=== PATIENT | male | born 1950 | race African-American/Black ===

== ENCOUNTER 2016-09-15 23:00 | Inpatient (IN) | payer MEDICARE, OTHER ==
--- NOTE | ~2016-09-15 | HP ---
History And Physical [address] [place]. [address] NAME: ALIYA SUH : 52 STATUS : ADM IN [facility]#: [id number] AGE: 66 ADM/REG DATE : 09/16/16 MR#: [id number] REPORT SERV DATE: 09/16/16 DICTATED BY: BRYCE STERN DATE: 09/16/16 REPORT STATUS : Draft TRANSCRIBED BY: MODL DATE: 09/16/16 DATE OF ADMISSION: 09/16/2016 REASON FOR ADMISSION: Acute seizure, currently on mechanical ventilation. CHIEF COMPLAINT: Unable to obtain due to the patient's current medical status. HISTORY OF PRESENT ILLNESS: Mr. Suh is a 66-year-old gentleman, who was seen in the emergency room today for seizure. He was apparently in the waiting room for which he came up and asked when he was going to be seen and then shortly thereafter, had a seizure. He was brought to the emergency room and emergently intubated. He was given Keppra along with Ativan and is now currently on a propofol drip, currently on mechanical ventilation. No history was obtained prior. The emergency room has been attempting to contact family, but no family has been found as of yet. The patient is currently alone. PAST MEDICAL HISTORY: Unclear at this time, the patient currently smokes tobacco. MEDICATIONS: Unknown at this time. ALLERGIES: UNKNOWN AT THIS TIME. FAMILY HISTORY: Currently unknown at this time. SOCIAL HISTORY: As noted above. The patient does have a tobacco use history. REVIEW OF SYSTEMS: Unable to obtain. PHYSICAL EXAMINATION: VITAL SIGNS: Currently afebrile, heart rate around 80-90, blood pressure currently around 150 systolic, respiratory rate less than 20 on mechanical ventilation, and oxygen saturation 100% on mechanical ventilation. GENERAL: The patient is currently intubated and sedated. Pupils are equal and reactive. PULMONARY: Lungs are clear to auscultation bilaterally. No wheezing. CARDIAC: Regular rate. No murmurs. EXTREMITIES: No lower extremity edema, peripheral pulses noted in all extremities. Extremity is warm to touch. ABDOMEN: Abdomen is soft and nondistended. Positive bowel sounds. NEUROLOGIC: Currently, the patient is sedated. Prior to being intubated, he was moving all extremities. He was very strong and was having a seizure. LABORATORY EXAMINATION: No leukocytosis, hemoglobin 11.8, good kidney function, lactate 7, CPK 1200. Negative urine drug screen. Urinalysis is negative. Arterial blood gas shows a metabolic acidosis. IMAGING: Chest x-ray has been reviewed. ET tube is in good position. OG-tube is currently History And Physical [address] [address] NAME: ALIYA SUH : 52 STATUS : ADM IN [facility]#: [id number] AGE: 66 ADM/REG DATE : 09/16/16 MR#: [id number] REPORT SERV DATE: 09/16/16 DICTATED BY: BRYCE STERN DATE: 09/16/16 REPORT STATUS : Draft TRANSCRIBED BY: MODL DATE: 09/16/16 at the junction of the esophagus and stomach. ASSESSMENT AND PLAN: Mr. Suh is a 66-year-old gentleman with a past medical history that is known, who was noted to have an acute seizure, respiratory failure. Currently, the patient will continue mechanical ventilation, will have Neurology see the patient in the morning, will attempt to have more contact with the family. I would like to get his home med list. The patient is currently on propofol along with Keppra. At this moment in time, the patient is n.p.o. We will advance OG-tube and recheck a KUB. Prophylaxis: The patient will get gastrointestinal prophylaxis and also deep vein thrombosis prophylaxis as his head CT scan is negative. Code status: The patient is currently full code until we get further directives from the family. Metabolic acidosis: We will check another lactate and ABG. HFQ/MODL Bryce Stern MD / [id number] CC: Bryce Stern MD
--- NOTE | ~2016-09-15 | EEG ---
Electroencephalogram [address] [place]. [address] NAME: ALIYA HUERTA : 52 STATUS : ADM IN PAT#: [id number] AGE: 66 ADM/REG DATE : 09/16/16 MR#: [id number] REPORT SERV DATE: 09/16/16 DICTATED BY: DATE: REPORT STATUS : Draft TRANSCRIBED BY: MODL DATE: 09/16/16 CLINICAL INDICATION: Seizures, status epilepticus. DISCUSSION: This EEG was performed using 10/20 electrode placement system. During the EEG study, symmetric background activity was noted with predominant occipital rhythm of roughly 8 hertz. Muscle artifact was seen predominantly in the temporal area bilaterally. Otherwise, photic stimulation was performed with trace driving responses seen. Hyperventilation was not performed secondary to patient's intubation status. During the EEG study, episodic bilateral parietal as well as a central rhythmic activity were noted. No electrographic seizure was otherwise noted. No focal abnormality, seizure activity with seizure discharge were otherwise seen. Rhythmic activity mostly in the CZ as well as the P3 and P4 electrode was noted episodically during the EEG studies. The patient was noted to achieve drowsy state during the EEG studies. Prior to the EEG study, the patient's propofol was subsequently turned off. INTERPRETATION: This EEG study obtained during awake and drowsy state with the patient's propofol turned off can be considered abnormal secondary to presence of nonspecific rhythmic activity of unknown significance mostly in the central as well as the bilateral parietal area. No electrographic seizure, no clinical seizure, and no seizure activity was otherwise noted. No focal abnormality was otherwise observed during the EEG study. Clinical correlation is recommended. [facility]/SANJANA Kermit Flores MD / [id number] CC: Salvatore Escalera MD
--- NOTE | ~2016-09-15 | CN ---
Consultation Report [facility] [address] [place]. [address] NAME: ALIYA HUERTA : 52 STATUS : ADM IN PAT#: [id number] AGE: 66 ADM/REG DATE : 09/16/16 MR#: [id number] REPORT SERV DATE: 09/16/16 DICTATED BY: DATE: REPORT STATUS : Draft TRANSCRIBED BY: MODL DATE: 09/16/16 NEUROLOGY CONSULTATION DATE OF CONSULTATION: 09/16/2016 REASON FOR CONSULT: Seizure. HISTORY OF PRESENT ILLNESS: The patient presented to the emergency room for unknown reason. Prior to the patient's evaluation, the patient was noted to have witnessed tonic-clonic seizure and was brought back to the emergency room, had to be emergently intubated. The patient overnight was on Keppra 1000 mg IV b.i.d. and was noted to be on propofol drip as well. When the patient's propofol drip was turned off, the patient was noted to have elevated blood pressure as well as agitation and combative. Overnight attempts were made to contact the patient's family members also along with family, no family member was noted to be visiting the patient. The patient was not noted to have any known history of seizure. Also, the patient does have a history of phenobarbital level checked in 2014, no reports of recent illness was made by the patient. It is unclear why the patient presented to the emergency room for evaluation. Overnight, the patient has not developed any fevers. PAST MEDICAL HISTORY: Unable to be obtained secondary to the patient's current mental status as well as lack of family members for corroboration of history. Attempts were made to contact the patient's home via available phone numbers, also no answer was noted. FAMILY HISTORY: Unable to be obtained secondary to the patient's current mental status as well as lack of family members for corroboration of history. Attempts were made to contact the patient's home via available phone numbers, also no answer was noted. SOCIAL HISTORY: Unable to be obtained secondary to the patient's current mental status as well as lack of family members for corroboration of history. Attempts were made to contact the patient's home via available phone numbers, also no answer was noted. MEDICATIONS: Unable to be obtained secondary to the patient's current mental status as well as lack of family members for corroboration of history. Attempts were made to contact the patient's home via available phone numbers, also no answer was noted. ALLERGIES: UNABLE TO BE OBTAINED SECONDARY TO THE PATIENT'S CURRENT MENTAL STATUS WELL LACK OF FAMILY MEMBERS FOR CORROBORATION OF HISTORY. ATTEMPTS WERE MADE TO CONTACT THE PATIENT'S HOME VIA AVAILABLE PHONE NUMBERS, ALSO NO ANSWER WAS NOTED. REVIEW OF SYSTEMS: Unable to be obtained secondary to the patient's current mental status as well as lack of family members for corroboration of history. Attempts were made to contact the patient's home via available phone numbers, also no answer was noted. Consultation Report [facility] [address] [facility] [place]. [address] NAME: ALIYA HUERTA : 52 STATUS : ADM IN PAT#: [id number] AGE: 66 ADM/REG DATE : 09/16/16 MR#: [id number] REPORT SERV DATE: 09/16/16 DICTATED BY: DATE: REPORT STATUS : Draft TRANSCRIBED BY: MODL DATE: 09/16/16 PHYSICAL EXAMINATION: VITAL SIGNS: Overnight the patient's vital signs since the hospital admission were T-max 97.9, heart rate of 80 to 90, respiration of 12 to 14, and blood pressure of 126 to 139 over 92 to 97. GENERAL: The patient is well developed, well nourished, in no acute distress. CARDIOVASCULAR: Mildly tachycardic. No carotid bruits were auscultated. PULMONARY: Examination was clear to auscultation bilaterally. NEUROLOGIC: The patient was intubated on propofol drip. Also, the patient does open his eyes with noxious stimulation, nonverbal. The patient was noted to have followed very rare sporadic commands. Cranial nerves II through XII with pupil was small but minimally reactive at the time of evaluation. Bilaterally no hzovc-[id number] response was noted. No clear horizontal eye movement was noted on oculocephalic maneuver. The patient does have corneal reflex in bilateral eyes. No clear grimace to noxious stimulation phossy jaw bilaterally. The patient does have gag reflex at the time of evaluation. The patient does have 2+ reflexes in the left upper extremity. Otherwise, absent reflex in bilateral lower extremity as well as the left upper extremity. The patient does demonstrate movement of left upper extremity on command but otherwise no spontaneous movement or command movement on right upper and bilateral lower extremity. The patient does have grimace as well as eye opening to noxious stimulation to the left upper extremity. No grimace or withdrawal or posturing to noxious stimulation in the right upper and bilateral lower extremity at the time of evaluation. Cerebellar examination as well as gait is unable to be evaluated. LABORATORY STUDIES: Demonstrated white blood cell count of 8.5, hemoglobin of 12.6, hematocrit of 38.7, and platelet count of 302. Chemistry panel: Sodium of 144, potassium 3.7, chloride 102, bicarb of 34, BUN of 5, creatinine of 0.93, glucose of 85, calcium of 8.2, and magnesium of 2.6. Serum alcohol level was less than 10. ABG demonstrated pH of 7.43, pCO2 of 46, PO2 of 83, bicarb of 29.8, and O2 saturation of 96.5. Urine drug screen is otherwise negative with urinalysis, demonstrated negative leukocyte esterase, negative nitrite. CT scan of the brain demonstrated mild generalized atrophy. No clear acute abnormality was otherwise noted. IMPRESSION: 1. Seizure. The patient was noted to have either new onset or history of seizure; however, no available historians available for obtaining history. The patient does have previous records of phenobarbital level checked concerning for possible previous pre-existing history of seizure. We are recommending continue Keppra for now. We will attempt to obtain history as well as taper off propofol as tolerated. Meanwhile we will check Dilantin, Depakote, TSH, free T4, vitamin B12, folate, thiamine, and ammonia level. We will also obtain EEG. 2. Right hemiparesis. We will obtain MRI of the brain when more history is obtainable. RECOMMENDATION: 1. Continue Keppra 1000 mg IV b.i.d. 2. EEG. 3. Dilantin, Depakote, TSH, free T4, vitamin B12, folate, thiamine, ammonia level. Consultation Report [id number] [place]. [address] NAME: ALIYA HUERTA : 52 STATUS : ADM IN [facility]#: [id number] AGE: 66 ADM/REG DATE : 09/16/16 MR#: [id number] REPORT SERV DATE: 09/16/16 DICTATED BY: DATE: REPORT STATUS : Draft TRANSCRIBED BY: MODL DATE: 09/16/16 4. MRI of the brain without contrast when more history is available or the patient is more alert. 5. We will try to taper off propofol as tolerated. [facility]/MODL Kermit Flores MD / [id number] CC: Salvatore Escalera MD
--- NOTE | ~2016-09-15 | DS ---
Discharge Summary [address] [place]. [address] NAME: ALIYA HUERTA : 52 STATUS : DIS IN PAT#: [id number] AGE: 66 ADM/REG DATE : 09/16/16 MR#: [id number] REPORT SERV DATE: 09/20/16 DICTATED BY: DATE: REPORT STATUS : Draft TRANSCRIBED BY: MODL DATE: 09/19/16 ADMISSION DATE: 09/16/2016 DISCHARGE DATE: 09/19/2016 DISCHARGE DIAGNOSES: 1. Acute respiratory failure, resolved. 2. Seizures. 3. Hypertension. 4. Drug abuse. CONSULTATIONS: Dr. Magdalena Flores, Neurology. PERTINENT TEST AND PROCEDURES: 1. Chest x-ray, 09/15/2016, impression: Clear lungs with normal vasculature. No effusion. No acute cardiopulmonary disease. 2. CT of brain without contrast, 09/16/2016, impression: Atrophy. Old deep white matter ischemic changes. No acute pathology. 3. Chest x-ray, 09/16/2016, impression: NG tube in place. Clear chest. 4. KUB, 09/16/2016, post OGT placement. 5. Chest x-ray, 09/16/2016, impression: Single band of discoid atelectasis in left base. Otherwise lungs clear. Improved pulmonary aeration. ET tube and NG tube in good position. 6. KUB, 09/16/2016, to confirming NG tube position. 7. Chest x-ray, 09/17/2016, removal of previously seen endotracheal tube and NG/OG tube. Minimal bibasilar atelectasis. Otherwise, lungs clear bilaterally. 8. MRI of brain without contrast, 09/17/2016, impression: Mild diffuse cerebral involutional changes and moderate advanced deep white matter chronic microvascular ischemic changes. No acute CVA or other acute intracranial pathology. 9. Chest x-ray, 09/19/2016, impression: Clear chest. 10.Chest x-ray, 09/19/2016, lungs are clear. Pulmonary vessels are normal. No acute process. 11.Electroencephalogram on 09/16/2016, interpretation: EEG study was obtained during wake and drowsy state with the patient's propofol turned off and can be considered normal secondary to presence of nonspecific rhythmic activity of unknown significance mostly in the central as well as bilateral parietal area. No electrographic seizure, no clinical seizure, and no seizure activity was otherwise noted. No focal abnormality was otherwise observed during the EEG study. 12.Intubation, 09/16/2016 secondary to acute respiratory failure in the setting of seizure. Extubated successfully on 09/17/2016. CHIEF COMPLAINT UPON ADMISSION: Acute seizure requiring mechanical ventilation. HOSPITAL COURSE: Please refer to history and physical dated 09/16/[address] Salvatore Escalera, for complete details of the patient's initial presentation upon admission and health history. Discharge Summary [address] [address] NAME: ALIYA HUERTA : 52 STATUS : DIS IN PAT#: [id number] AGE: 66 ADM/REG DATE : 09/16/16 MR#: [id number] REPORT SERV DATE: 09/20/16 DICTATED BY: DATE: REPORT STATUS : Draft TRANSCRIBED BY: MODL DATE: 09/19/16 Also, please refer to consultation dated 09/16/[address] Magdalena Flores, Neurology, for additional details pertaining to the patient's history of seizure. Briefly, the patient is a 66-year-old male who was seen in the emergency department on 09/16/2016 for seizure requiring emergency intubation. The patient was transferred to intensive care unit, to continue mechanical intubation and await Neurology consultation for further evaluation and recommendation regarding seizure activity. The patient was evaluated by Neurology on 09/16/2016. It was noted that there were no available historians for obtaining the patient's history during Neurology interview and exam. Neurology continue to manage the patient's medications throughout admission including post extubation on 09/17/2016 and also during transfer to floor on 09/18/2016. It is noteworthy to mention that no clear health history was obtained during this admission. The patient had no family or friends present during entire admission. The patient is an extremely poor health historian. Review of [facility] records from 2014 indicated that the patient was seen in the emergency department in September 2014 as well as May 2015 for seizure-like activity. During September 2014 emergency visit, it was also noted that the patient was participating in recreational drug use to include cocaine. Since returning to floor from ICU, the patient has had no other clinical signs or symptoms of seizure activity and is tolerating phenobarbital and Keppra without adverse reaction. 1. Acute respiratory failure upon admission secondary to seizure activity requiring emergency intubation. The patient remained in the ICU while on mechanical intubation, but was successfully extubated on 09/27/2016. Since extubation, the patient has maintained his airway without any need for supplemental oxygen. The patient is currently maintaining 96% oxygen saturation on room air. 2. Seizure. Very difficult to determine the patient's history of seizure. However, review of the [facility] records indicate the patient has taken Keppra and phenobarbital in the past. When questioned regarding seizure activity, the patient states all he knows is that he goes to a clinic across the street from [place] to get his medications. When questioned about routine medication administration, the patient reported that he skips multiple days of medication administration by choice. The patient was educated on the risk associated with not following a routine medication regimen to include increased risk of seizure activity that could result in injury. The patient was advised to follow up with [facility] within one week. Neurology recommended the patient continue Keppra 1000 mg p.o. twice daily and phenobarbital 50 mg p.o. twice daily. 3. Recreational drug abuse. The patient self-reported routine use of cocaine at least weekly. The patient stated last use within one week of this admission. The patient was educated regarding significant risk associated with drug use, especially in the setting of seizure history. 4. Hypertension. The patient has no knowledge of whether or not he is treated for hypertension on an outpatient basis. However, upon admission, the patient's blood pressure was elevated requiring initiation of lisinopril 10 mg p.o. daily. The patient Discharge Summary [address] [address] NAME: ALIYA HUERTA : 52 STATUS : DIS IN PAT#: [id number] AGE: 66 ADM/REG DATE : 09/16/16 MR#: [id number] REPORT SERV DATE: 09/20/16 DICTATED BY: DATE: REPORT STATUS : Draft TRANSCRIBED BY: SANJANA DATE: 09/19/16 was provided a prescription for this medication for home use and was educated on the risk associated with untreated hypertension. DISCHARGE CONDITION: At time of discharge, the patient is hemodynamically stable and has suffered no clinical signs or symptoms of additional seizure activity since returning to floor from ICU. DISCHARGE DIET: Regular diet as tolerated. DISCHARGE MEDICATIONS: 1. Keppra 500 mg tablet, take 1000 mg p.o. twice daily. 2. Prinivil 10 mg tablet p.o. daily. 3. Phenobarbital 15 mg p.o. twice daily. DISCHARGE INSTRUCTIONS: 1. Follow up with [facility] within one week for medication management and routine evaluation of hypertension and seizure. 2. Follow up with [facility] within four to six weeks, per Neurology recommendation. Upon discharge, referral for new patient appointment was sent to [facility]'s office. We are awaiting return call confirming appointment time and date. 3. The patient was instructed on extreme risk associated with noncompliance with seizure medication in addition to hypertensive medication. The patient was also counseled to abstain from recreational drug use. [facility]/SANJANA DIEGO Banerjee / [id number] CC: Vern Ricardo M.D.
[2016-09-15 17:58] LABS: BASOPHILS 0.5 %; BASOPHILS ABSOLUTE 0.03 10/3/uL (0.0-0.16); EOSINOPHILS 1.3 %; EOSINOPHILS ABSOLUTE 0.08 10/3/uL (0.0-0.53); ER CBC TAT 0 Hrs 08 Mins; HEMOGLOBIN 13.4 g/dL (13.6-17.8); IMMATURE GRANULOCYTES 0.2 %; IMMATURE GRANULOCYTES ABSOLUTE 0.01 10/3/uL (0.0-0.11); LYMPHOCYTES 32.1 %; LYMPHOCYTES ABSOLUTE 2.05 10/3/uL (0.67-4.30); MEAN CORPUS HGB CONC 32.7 g/dL (32.0-36.0); MEAN CORPUSCULAR HEMOGLOB 23.5 pg (26.0-34.0); MEAN CORPUSCULAR VOLUME 71.8 fL (80-100); MEAN PLATELET VOLUME 9.5 fL (9.2-13.0); MONOCYTES 7.7 %; MONOCYTES ABSOLUTE 0.49 10/3/uL (0.21-1.20); NEUTROPHILS 58.2 %; NEUTROPHILS ABSOLUTE 3.73 10/3/uL (2.02-8.40); PLATELET COUNT 321 10/3/uL (150-400); RBC DISTRIBUTION WIDTH 14.6 % (12.0-16.0); RED CELL COUNT 5.71 10/6/uL (4.7-6.1); WHITE BLOOD CELLS 6.4 10/3/uL (4.5-10.5)
[2016-09-15 17:59] LABS: MANUAL DIFF NO %
[2016-09-15 18:00] LABS: ASCORBIC ACID (UR NOT ORDER) NEG (NEG); BILIRUBIN, URINE NEGATIVE (NEG); ER URINALYSIS TAT 0 Hrs 10 Mins; KETONE, URINE NEGATIVE (NEG); LEUKOCYTE ESTERASE(NOT OR NEG (NEG); NITRITE (URINE) NEG (NEG); WBC (NOT ORDERED) (RFLEX) < 1 (0-5)
[2016-09-15 18:05] LABS: INTERNATIONAL NORMAL RATI 1.1 UNITS (-); PARTIAL THROMBO TIME 29.6 SEC (22.5-37.2); PROTIME (NOT ORD) 14.3 SEC (12.0-14.5)
[2016-09-15 18:14] LABS: BUN (BLOOD UREA NITROGEN) 4 MG/DL (6-23); CHEST PAIN PROFILE TAT 0 Hrs 24 Mins; CHLORIDE, SERUM 103 MMOL/L (96-112); CO2 (CARBON DIOXIDE) 28 MMOL/L (24-34); CREATININE 0.78 MG/DL (0.70-1.30); GFR AFRICAN AMERICAN 110 ML/MIN (>=60); GFR NON AFRICAN AMERICAN 95 ML/MIN (>=60); GLUCOSE, SERUM 94 MG/DL (60-99); POTASSIUM, SERUM 3.7 MMOL/L (3.5-5.3); SODIUM, SERUM 139 MMOL/L (135-148); TROPONIN I 0.02 NG/ML (<0.05)
[2016-09-15 18:19] LABS: PLATELET ESTIMATE ADQ (ADEQUATE)
[2016-09-15 18:20] LABS: POIKILOCYTOSIS 1+ (5-10/OIF) (0-5/OIF)
[2016-09-16 00:31] LABS: CARBOXYHEMOGLOBIN 3.1 % (0-3); DEVICE NC; HEMOBLOGIN CONTENT 14.6 G/DL (14-18); INSTRUMENT SERIAL # 8087; METHEMOGLOBIN 0.5 % (0-3); O2 CONTENT 19.6 VOL% (18-24); PCO2 (CO2 TENSION) 39 MMHG (35-45); PO2 (O2 TENSION) 144 MMHG (79-93); SAMPLE Arterial; pH 6.93 (7.37-7.43)
[2016-09-16] MEDS ORDERED: *UNABLE3 (01:28)
[2016-09-16 02:43] LABS: BASOPHILS 0.1 %; BASOPHILS ABSOLUTE 0.01 10/3/uL (0.0-0.16); EOSINOPHILS 0.6 %; EOSINOPHILS ABSOLUTE 0.06 10/3/uL (0.0-0.53); HEMOGLOBIN 11.8 g/dL (13.6-17.8); IMMATURE GRANULOCYTES 0.4 %; IMMATURE GRANULOCYTES ABSOLUTE 0.04 10/3/uL (0.0-0.11); MEAN CORPUS HGB CONC 32.7 g/dL (32.0-36.0); MEAN CORPUSCULAR HEMOGLOB 23.5 pg (26.0-34.0); MEAN CORPUSCULAR VOLUME 71.8 fL (80-100); MEAN PLATELET VOLUME 9.6 fL (9.2-13.0); MONOCYTES 5.4 %; NEUTROPHILS 78.5 %; PLATELET COUNT 286 10/3/uL (150-400); RBC DISTRIBUTION WIDTH 14.4 % (12.0-16.0); RED CELL COUNT 5.03 10/6/uL (4.7-6.1)
[2016-09-16 02:44] LABS: ER CBC TAT 0 Hrs 05 Mins; HEMATOCRIT 36.1 % (40.0-51.0); MANUAL DIFF NO %; WHITE BLOOD CELLS 9.3 10/3/uL (4.5-10.5)
[2016-09-16 02:54] LABS: ASCORBIC ACID (UR NOT ORDER) NEG (NEG); BILIRUBIN, URINE NEGATIVE (NEG); ER URINALYSIS TAT 0 Hrs 00 Mins; KETONE, URINE NEGATIVE (NEG); LEUKOCYTE ESTERASE(NOT OR NEG (NEG); NITRITE (URINE) NEG (NEG); WBC (NOT ORDERED) (RFLEX) 0 (0-5)
[2016-09-16 02:58] LABS: INTERNATIONAL NORMAL RATI 1.2 UNITS (-)
[2016-09-16 02:59] LABS: PARTIAL THROMBO TIME 28.2 SEC (22.5-37.2)
[2016-09-16 03:01] LABS: A/G RATIO 0.6 (0.7-1.9); ALBUMIN 2.6 G/DL (3.5-5.0); BUN (BLOOD UREA NITROGEN) 6 MG/DL (6-23); CALCIUM, SERUM 7.6 MG/DL (8.5-10.4); CHLORIDE, SERUM 104 MMOL/L (96-112); CO2 (CARBON DIOXIDE) 27 MMOL/L (24-34); CREATININE 0.96 MG/DL (0.70-1.30); GFR AFRICAN AMERICAN 96 ML/MIN (>=60); GFR NON AFRICAN AMERICAN 83 ML/MIN (>=60); GLOBULIN 4.1 G/DL (2.5-4.1); GLUCOSE, SERUM 101 MG/DL (60-99); SGOT(AST) 42 U/L (5-40); SGPT(ALT) 33 U/L (5-65); SODIUM, SERUM 144 MMOL/L (135-148); TOTAL BILIRUBIN 0.4 MG/DL (0-1.2); TOTAL PROTEIN 6.7 G/DL (6.0-8.5); TROPONIN I <0.02 NG/ML (<0.05)
[2016-09-16 03:02] LABS: ACETAMINOPHEN LEVEL (TYLENOL) < 2.0 MCG/ML (10.0-20.0); ALCOHOL < 10 MG/DL (0); ALKALINE PHOSPHATASE 79 U/L (45-117); SALICYLATE < 1.7 MG/DL (-)
[2016-09-16 03:06] LABS: MICROCYTES 1+ (5-10/OIF) (0-5/OIF); PLATELET ESTIMATE ADQ (ADEQUATE)
[2016-09-16 03:20] LABS: AMPHETAMINES (NOT ORD) NEG (NEG); BARBITURATES (NOT ORDERED NEG (NEG); BENZODIAZEPINES (NOT ORD) NEG (NEG); CANNABINOIDS (THC) NEG (NEG); COCAINE (NOT ORDERED) NEG (NEG); OPIATES NEG (NEG); PHENCYCLIDINE(PCP) NEG (NEG); TRICYCLICS NEG (NEG)
[2016-09-16 04:24] LABS: BE (BASE EXCESS) 4.7 MEQ/L (0 +/- 2.5); CARBOXYHEMOGLOBIN 1.5 % (0-3); HCO3 (ACTUAL BICARBONATE) 29.8 MEQ/L (23-27); HEMOBLOGIN CONTENT 13.8 G/DL (14-18); INSTRUMENT SERIAL # 35151; METHEMOGLOBIN 0.5 % (0-3); MODE CMV; O2 CONTENT 18.4 VOL% (18-24); PCO2 (CO2 TENSION) 46 MMHG (35-45); PO2 (O2 TENSION) 83 MMHG (79-93); SAMPLE Arterial; TIDAL VOLUME 500 ML; pH 7.43 (7.37-7.43)
[2016-09-16 05:24] LABS: BASOPHILS 0.2 %; BASOPHILS ABSOLUTE 0.02 10/3/uL (0.0-0.16); EOSINOPHILS 0.4 %; EOSINOPHILS ABSOLUTE 0.03 10/3/uL (0.0-0.53); HEMATOCRIT 38.7 % (40.0-51.0); HEMOGLOBIN 12.6 g/dL (13.6-17.8); IMMATURE GRANULOCYTES 0.4 %; IMMATURE GRANULOCYTES ABSOLUTE 0.03 10/3/uL (0.0-0.11); LYMPHOCYTES 28.3 %; MEAN CORPUS HGB CONC 32.6 g/dL (32.0-36.0); MEAN CORPUSCULAR HEMOGLOB 23.3 pg (26.0-34.0); MEAN CORPUSCULAR VOLUME 71.7 fL (80-100); MEAN PLATELET VOLUME 9.7 fL (9.2-13.0); MONOCYTES 7.8 %; MONOCYTES ABSOLUTE 0.66 10/3/uL (0.21-1.20); NEUTROPHILS 62.9 %; NEUTROPHILS ABSOLUTE 5.34 10/3/uL (2.02-8.40); PLATELET COUNT 302 10/3/uL (150-400); RBC DISTRIBUTION WIDTH 14.4 % (12.0-16.0); WHITE BLOOD CELLS 8.5 10/3/uL (4.5-10.5)
[2016-09-16 05:25] LABS: MANUAL DIFF NO %
[2016-09-16 05:48] LABS: BUN (BLOOD UREA NITROGEN) 5 MG/DL (6-23); CHLORIDE, SERUM 102 MMOL/L (96-112); CPK 1327 U/L (0-200); CREATININE 0.93 MG/DL (0.70-1.30); GFR AFRICAN AMERICAN 99 ML/MIN (>=60); GFR NON AFRICAN AMERICAN 86 ML/MIN (>=60); GLUCOSE, SERUM 85 MG/DL (60-99); SODIUM, SERUM 144 MMOL/L (135-148)
[2016-09-16 05:50] LABS: CK-MB 4.2 NG/ML; CO2 (CARBON DIOXIDE) 34 MMOL/L (24-34); POTASSIUM, SERUM 2.7 MMOL/L (3.5-5.3)
[2016-09-16 05:56] LABS: PLATELET ESTIMATE ADQ (ADEQUATE)
[2016-09-16 14:18] LABS: DEPAKENE (VALPROIC ACID) 3.9 MCG/ML (50.0-100.0); DILANTIN (PHENYTOIN) 1.3 MCG/ML (10.0-20.0); FOLATE 14.6 NG/ML (>5.2); FREE T4 1.28 NG/DL (0.76-1.46); POTASSIUM, SERUM 3.8 MMOL/L (3.5-5.3); ULTRASENSITIVE TSH 0.632 MCIU/ML (0.358-3.740)
[2016-09-17 06:06] LABS: BASOPHILS 0.1 %; BASOPHILS ABSOLUTE 0.01 10/3/uL (0.0-0.16); EOSINOPHILS 0.8 %; EOSINOPHILS ABSOLUTE 0.07 10/3/uL (0.0-0.53); HEMATOCRIT 39.9 % (40.0-51.0); HEMOGLOBIN 12.6 g/dL (13.6-17.8); IMMATURE GRANULOCYTES 0.1 %; IMMATURE GRANULOCYTES ABSOLUTE 0.01 10/3/uL (0.0-0.11); LYMPHOCYTES 37.8 %; LYMPHOCYTES ABSOLUTE 3.45 10/3/uL (0.67-4.30); MEAN CORPUS HGB CONC 31.6 g/dL (32.0-36.0); MEAN CORPUSCULAR HEMOGLOB 22.9 pg (26.0-34.0); MEAN CORPUSCULAR VOLUME 72.5 fL (80-100); MEAN PLATELET VOLUME 10.1 fL (9.2-13.0); MONOCYTES ABSOLUTE 0.73 10/3/uL (0.21-1.20); NEUTROPHILS 53.2 %; NEUTROPHILS ABSOLUTE 4.85 10/3/uL (2.02-8.40); PLATELET COUNT 278 10/3/uL (150-400); RBC DISTRIBUTION WIDTH 14.5 % (12.0-16.0); WHITE BLOOD CELLS 9.1 10/3/uL (4.5-10.5)
[2016-09-17 06:09] LABS: MANUAL DIFF NO %
[2016-09-17 06:21] LABS: BUN (BLOOD UREA NITROGEN) 6 MG/DL (6-23); CHLORIDE, SERUM 104 MMOL/L (96-112); CREATININE 0.78 MG/DL (0.70-1.30); GFR AFRICAN AMERICAN 110 ML/MIN (>=60); GFR NON AFRICAN AMERICAN 95 ML/MIN (>=60); GLUCOSE, SERUM 96 MG/DL (60-99); PHOSPHORUS, SERUM 2.5 MG/DL (2.5-4.5); POTASSIUM, SERUM 3.6 MMOL/L (3.5-5.3); SODIUM, SERUM 140 MMOL/L (135-148)
[2016-09-17 06:22] LABS: CO2 (CARBON DIOXIDE) 28 MMOL/L (24-34)
[2016-09-17 06:34] LABS: MICROCYTES 1+ (5-10/OIF) (0-5/OIF); PLATELET ESTIMATE ADQ (ADEQUATE)
[2016-09-18 05:14] LABS: BASOPHILS 0.3 %; BASOPHILS ABSOLUTE 0.02 10/3/uL (0.0-0.16); EOSINOPHILS 1.1 %; EOSINOPHILS ABSOLUTE 0.09 10/3/uL (0.0-0.53); HEMATOCRIT 41.3 % (40.0-51.0); IMMATURE GRANULOCYTES 0.3 %; IMMATURE GRANULOCYTES ABSOLUTE 0.02 10/3/uL (0.0-0.11); LYMPHOCYTES 34.9 %; LYMPHOCYTES ABSOLUTE 2.75 10/3/uL (0.67-4.30); MEAN CORPUS HGB CONC 31.5 g/dL (32.0-36.0); MEAN CORPUSCULAR HEMOGLOB 22.8 pg (26.0-34.0); MEAN CORPUSCULAR VOLUME 72.6 fL (80-100); MEAN PLATELET VOLUME 9.6 fL (9.2-13.0); MONOCYTES ABSOLUTE 0.55 10/3/uL (0.21-1.20); NEUTROPHILS 56.4 %; NEUTROPHILS ABSOLUTE 4.44 10/3/uL (2.02-8.40); PLATELET COUNT 255 10/3/uL (150-400); RBC DISTRIBUTION WIDTH 14.7 % (12.0-16.0); RED CELL COUNT 5.69 10/6/uL (4.7-6.1); WHITE BLOOD CELLS 7.9 10/3/uL (4.5-10.5)
[2016-09-18 05:18] LABS: MANUAL DIFF NO %
[2016-09-18 05:21] LABS: BUN (BLOOD UREA NITROGEN) 7 MG/DL (6-23); CALCIUM, SERUM 8.2 MG/DL (8.5-10.4); CHLORIDE, SERUM 105 MMOL/L (96-112); CO2 (CARBON DIOXIDE) 28 MMOL/L (24-34); CREATININE 0.77 MG/DL (0.70-1.30); GFR AFRICAN AMERICAN 110 ML/MIN (>=60); GFR NON AFRICAN AMERICAN 95 ML/MIN (>=60); GLUCOSE, SERUM 94 MG/DL (60-99); PHOSPHORUS, SERUM 3.1 MG/DL (2.5-4.5); POTASSIUM, SERUM 3.9 MMOL/L (3.5-5.3); SODIUM, SERUM 140 MMOL/L (135-148)
[2016-09-18 06:44] LABS: HYPOCHROMIA 1+ (3-10/OIF) (0-2/OIF)
[2016-09-18 06:45] LABS: BURR CELLS 1+ (3-10/OIF) (0-2/OIF); PLATELET ESTIMATE ADQ (ADEQUATE)
[2016-09-19] MEDS ORDERED: PRIN10 PO (13:22)
[2016-09-19] MEDS ORDERED: KEPPRA500 PO (13:22)
[2016-09-19] MEDS ORDERED: PB60 PO (13:23)
== END 2016-09-19 16:19 | disposition home or self-care (01) | DRG 100 ==
LOC: ER 23:00 → CCU 09-16 01:55 → 4EA 09-17 13:09
PROVIDERS: Emergency Medicine; Internal Medicine; Internal Medicine Critical Care Medicine; Psychiatry & Neurology Neurology
PROC: 0BH17EZ Insertion of Endotracheal Airway into Trachea, Via Natural or Artificial Opening (ICD-10-PCS; principal; 2016-09-16)
PROC: 5A1935Z Respiratory Ventilation, Less than 24 Consecutive Hours (ICD-10-PCS; principal; 2016-09-16)
DX: G40.901 Epilepsy, unspecified, not intractable, with status epilepticus (principal); J96.01 Acute respiratory failure with hypoxia; E87.2 Acidosis; G81.91 Hemiplegia, unspecified affecting right dominant side; I10 Essential (primary) hypertension; E11.9 Type 2 diabetes mellitus without complications; F14.10 Cocaine abuse, uncomplicated
CPT/HCPCS: 31500; 31720; 36600; 70450; 70551; 71010; 71020; 74000; 80048; 80053; 80164; 80185; 80305; 80307; 81001; 82140; 82550; 82553; 82607; 82746; 82805; 82962; 83605; 83735; 84100; 84132; 84425; 84439; 84443; 84484; 85025; 85610; 85730; 87641; 94002; 94003; 94640; 94770; 95816; 96365; 96375; 99291; A9270-GY; C1894; C9113; J0330; J1953